=== PATIENT | female | born 1980 | race Hispanic/Latino ===

== ENCOUNTER → 2023-05-04 | Outpatient (CLI) | payer BC ==
[~2023-05-04] MED LIST: FERR325C PO; METF-446 PO; PREN1TAB80 PO; UNKNOWN ANTIBIOTIC PO
== END | disposition home or self-care (01) ==
LOC: RAH 15:34
PROVIDERS: ATTEND Family Medicine
DX: Z12.31 Encounter for screening mammogram for malignant neoplasm of breast (principal)
CPT/HCPCS: 77063; 77067

== ENCOUNTER → 2024-07-13 | Outpatient (CLI) | payer BC | END | disposition home or self-care (01) | LOC: RAH 08:11 | PROVIDERS: ATTEND Family Medicine | DX: Z12.31 Encounter for screening mammogram for malignant neoplasm of breast (principal); R92.30 Dense breasts, unspecified | CPT/HCPCS: 77063; 77067 ==